=== PATIENT | female | born 2005 | race African-American/Black ===

== ENCOUNTER 2024-04-16 00:42 | Emergency (ER) | payer OTHER, SELFPAY ==
--- NOTE | ~2024-04-16 | XR_ITS ---
Clinical Indication: Chest pain PA and lateral views of the chest: Comparison: None Findings: The lungs are clear, without evidence of focal consolidation or pleural effusion. Cardiome diastinal silhouette is within normal limits. Bones and soft tissues are unremarkable. Impression: Normal chest. Reviewed, dictated and finalized at location . Impression: Normal chest.
--- NOTE | 2024-04-16 00:45 | ECG_ITS ---
Test Date: 2024-04-16 00:54:35 Measurements Intervals [place] Rate: 92 P: 29 WA: 134 QRS: 53 QRSD: 98 T: -4 QT: 345 QTc: 427 Interpretive Statements SINUS RHYTHM NONSPECIFIC T-WAVE ABNORMALITY- ANT/INF LEADS BASELINE WANDER- V4 BORDERLINE ECG No previous ECG available for comparison Electronically Signed On 04-16-2024 06:32:56 CDT by Daniel Nunez D.O.
[2024-04-16 01:00] VITALS: PULSE 89
[2024-04-16 01:01] VITALS: BP 135/90; PULSE 80; PULSE 85; RESP 15; RESP 18; TEMP 36.5; O2SAT 100
[2024-04-16 01:09] LABS: Basophils Absolute Auto 0.1 K/mm3 (0.0-0.1); Basophils Percent Auto 0.9 % (0.2-1.2); Eosinophils Absolute Auto 0.4 K/mm3 (0-0.3); Eosinophils Percent Auto 3.4 % (0-4.4); Hematocrit 42.2 % (37.0-47.0); Hemoglobin 14.1 g/dL (12.0-15.0); Immature Granulocyte Absolute 0.07 K/mm3 (0.00-0.031); Immature Granulocyte Percent A 0.6 % (0-0.5); Lymphocytes Absolute Auto 4.87 K/mm3 (0.9-3.2); Lymphocytes Percent Auto 41.9 % (18.3-44.2); Mean Corpuscular HGB Conc 33.4 g/dl (32-36); Mean Corpuscular Hemoglobin 30.9 pg (26-34); Mean Corpuscular Volume 92.3 fl (80-100); Mean Platelet Volume 9.6 fl (7.4-10.4); Monocytes Percent Auto 8.7 % (2.6-8.5); Neutrophils Absolute Auto 5.2 K/mm3 (1.3-6.7); Neutrophils Percent Auto 44.5 % (45.5-73.1); Platelet Count Result 408 k/mm3 (150-375); Red Blood Count 4.57 M/mm3 (4.2-5.4); Red Cell Distribution Width 12.7 % (11.5-14.5); White Blood Count 11.6 K/mm3 (4.5-10.0)
[2024-04-16 01:10] VITALS: O2SAT 100
[2024-04-16 01:22] LABS: INR 1.1; Prothrombin Time 14.1 Seconds (11.1-14.7)
[2024-04-16 01:23] LABS: Partial Thromboplastin Time 36.2 Seconds (22.3-36.8)
[2024-04-16] MEDS: ASPIRIN 81 MG CHEWABLE TABLET 324 MG PO (01:24)
--- NOTE | 2024-04-16 01:35 | ED.CHESTPAIN ---
HPI - Chest Pain General Chief Complaint: Chest Pain Stated Complaint: chest pain Time Seen by Provider: 04/16/24 00:55 History of Present Illness HPI narrative: Patient presenting with chest pain that started earlier today, described as midsternal, she also has some slight back pain. No shortness of breath, nausea or vomiting. No personal or family history of cardiac disease, aneurysm/dissection, blood clots. No extremity pain or swelling. No focal numbness or weakness Related Data Allergies Allergy/AdvReac Type Severity Reaction Status Date / Time No Known Allergies Allergy Verified 04/16/24 01:05 Review of Systems Review of Systems: All systems reviewed & are unremarkable except as noted in HPI and below Exam Narrative: EXAMINATION OF ORGAN SYSTEMS/BODY AREAS: Constitutional: Vital signs per nursing GENERAL:[No acute distress, non-toxic appearing.] HEAD: Normal with no signs of head trauma. EYES: EOMI, conjunctiva normal ENT: Hearing grossly intact LUNGS: Nonlabored breathing. Clear to auscultation bilaterally HEART: [Regular rate and rhythm], normal pulses ABD: [Soft], [nontender to palpation] EXT: Normal range of motion SKIN: [No rashes or lesions.] NEURO: [Alert and oriented x 3. No gross focal sensory or strength deficits.] PSYCH: Normal affect Course Vital Signs Vital signs: Vital Signs Pulse Rate 89 04/16/24 01:00 Temperature 97.7 F 04/16/24 01:01 Pulse Rate 84 04/16/24 01:56 Respiratory Rate 19 04/16/24 01:56 Blood Pressure 128/90 04/16/24 01:56 Pulse Oximetry 100 04/16/24 01:56 Oxygen Delivery Room Air 04/16/24 01:10 MDM - Chest Pain MDM Narrative Medical decision making narrative: ED COURSE AND MEDICAL DECISION MAKIN-year-old female presenting with chest pain. EKG done in triage negative for acute ischemic changes. Cardiac workup is initiated. EKG: Performed in triage and interpreted by me. Normal sinus rhythm. Rate 92. Normal axis. SD normal. QRS duration normal. QTc normal. No pathologic Q waves. No ST segment elevation or depression to suggest acute ischemia. No RV strain pattern. Some T-wave inversions in III and AVF. Chest x-ray on my independent interpretation does not show any obvious consolidation, pneumothorax, or widened mediastinum or cardiomegaly. HEART score is 0 with no acute ischemic changes on EKG and negative troponin making ACS unlikely. Negative PERC making PE unlikely. Presentation not consistent with dissection or aneurysm without radiation of pain or pulse deficits. CXR negative for mediastinal widening. No abdominal pain or signs of sepsis that would be concerning for esophageal perforation or mediastinitis. No cardiomegaly or JVD to suggest pericardial effusion/tamponade. HEART Score: 1. (Risk of major adverse cardiac events over 6 weeks: Score of 0-3 is low risk <2% ; Score of 4-6 is moderate risk ~12-15%; Score of 7-12 is high risk ~50%). - History - [0]. (Not suspicious 0; moderately suspicious 1; highly suspicious 2). - EKG - 1. (No ST changes 0; non-specific ST/T changes 1; ST depression 2). - Age - [0]. (<45 = 0; 46-65 = 1; >65 = 2). - Risk factors - [0]. (0 factors = 0; 1-2 factors = 1; >2 factors = 2). - Troponin - [0]. (Normal = 0; Indeterminate = 1; High = 2). On repeat evaluation just prior to discharge, the patient is no acute distress. I had a long discussion with the patient and with shared decision making, she is comfortable with outpatient management. She was given clear return instructions by myself in person as well as on discharge paperwork. Lab Data 04/16/24 00:58 04/16/24 00:58 Labs: Lab Results 04/16/24 Range/Units 00:58 WBC 11.6 H (4.5-10.0) K/mm3 RBC 4.57 (4.2-5.4) M/mm3 Hgb 14.1 (12.0-15.0) g/dL Hct 42.2 (37.0-47.0) % MCV 92.3 (80-100) fl MCH 30.9 (26-34) pg MCHC 33.4 (32-36) g/dl RDW 12.7 (11.5-14.5) % Plt Count 408 H (150-375) k/mm3
[2024-04-16 01:37] LABS: Troponin I < 0.012 ng/mL (0.000-0.034)
[2024-04-16 01:56] VITALS: BP 128/90; PULSE 84; RESP 19; O2SAT 100
[2024-04-16 02:00] LABS: Alanine Aminotransferase 19 U/L (6-35); Albumin Level 4.4 g/dL (3.5-5.1); Alkaline Phosphatase 63 U/L (38-126); Anion Gap 12 mmol/L (4-12); Aspartate Amino Transferase 32 U/L (14-36); Bilirubin,Total 0.3 mg/dL (0.2-1.3); Blood Urea Nitrogen 11 mg/dL (7-17); Calcium 9.2 mg/dL (8.4-10.2); Carbon Dioxide 27 mmol/L (22-30); Chloride 100 mmol/L (98-107); Estimated CRCL calculation 120 ml/min; Estimated Glomerular Filt Rate > 60; Glucose 77 mg/dL (65-110); Lipase 110 U/L (23-300); Potassium 3.8 mmol/L (3.4-5.0); Sodium 139 mmol/L (137-145)
[2024-04-16 03:31] VITALS: BP 120/83; PULSE 69; RESP 14; O2SAT 100
== END 2024-04-16 03:32 | disposition home or self-care (01) ==
PROVIDERS: Emergency Provider Emergency Medicine
DX: R07.89 Other chest pain (principal); R94.31 Abnormal electrocardiogram [ECG] [EKG]
CPT/HCPCS: 36415; 71046; 80053; 83690; 84484; 85025; 85610; 85730; 93005; 99284; A9270